=== PATIENT | female | born 1990 | race African-American/Black ===

== ENCOUNTER 2022-08-25 08:46 | Emergency (ER) | payer SELFPAY ==
[~2022-08-25] VITALS: Ht 167.6 cm; Wt 66.0 kg
[2022-08-25 09:01] VITALS: O2SAT 100
[2022-08-25] MEDS ORDERED: MAGNESIUM/ALUMINUM HYDROXIDE/SIMETHICONE 30ML UDC PO STA (09:55)
[2022-08-25] MEDS ORDERED: DICYCLOMINE 10 MG/5 ML ORAL SYR PO STA (09:55)
[2022-08-25] MEDS ORDERED: VISCOUS LIDOCAINE 2% 15 ML UDC PO STA (09:55)
[2022-08-25] MEDS ORDERED: KETOROLAC 30MG/ML VIAL IV STA (09:55)
[2022-08-25] MEDS ORDERED: ONDANSETRON HCL 4MG/2ML INJ IV STA (09:55)
[2022-08-25] MEDS ORDERED: SODIUM CHLORIDE 0.9% 1,000 ML IV ONE (10:00)
[2022-08-25 10:14] LABS: BASOPHILS % 1.3 % (0.0-2.0); EOSINOPHILS % 0.4 % (0.0-5.0); HEMATOCRIT. 39.9 % (36.0-48.0); HEMOGLOBIN. 13.8 g/dL (12.0-16.0); LYMPHOCYTES % 21.9 % (20.0-50.0); MEAN CORPUSCULAR HEMOGLOBIN 32.4 pg (28.0-32.0); MEAN CORPUSCULAR VOLUME 93.6 fL (81.0-99.0); MEAN PLATELET VOLUME 8.8 fl (7.4-10.4); MONOCYTES % 5.2 % (2.0-8.0); NEUTROPHILS % 71.2 % (40.0-76.0); PLATELET 352 x1000/uL (130-400); RED BLOOD CELL COUNT 4.26 mill/uL (4.2-5.4); RED CELL DISTRIBUTION WIDTH 14.2 % (11.6-14.6)
[2022-08-25] MEDS ORDERED: MORPHINE SULFATE 2 MG/ML CPJ (NOT FOR IM USE) IV ONE (10:15)
[2022-08-25 10:22] LABS: CHLORIDE 104 mEq/L (98-107)
[2022-08-25 10:35] LABS: HCG SCREEN NEGATIVE
[2022-08-25] MEDS ORDERED: METOCLOPRAMIDE HCL 10MG/2ML VIAL IV ONE (11:30)
[2022-08-25] MEDS ORDERED: LORAZEPAM 2MG/ML CPJ IV ONE (11:30)
[2022-08-25] MEDS ORDERED: METO5TAB86 MT (15:16)
[2022-08-25 15:18] VITALS: BP 134/67; PULSE 80; RESP 18; TEMP 98.2
[2022-08-25] MEDS ORDERED: IOHEXOL-300 100 ML BOTTLE ONE (15:55)
== END 2022-08-25 15:18 | disposition home or self-care (01) ==
LOC: ER 08:46
DX: K29.70 Gastritis, unspecified, without bleeding (principal)
CPT/HCPCS: 36415; 74177; 80053; 83605; 83690; 84703; 85025; 96361; 96374; 96375; 99285; J1885; J2060; J2270; J2405; J2765; J7030; Q9967; Z7610